=== PATIENT | female | born 1980 | race Caucasian/White ===

== ENCOUNTER 2017-01-22 19:42 | Inpatient (IN) | payer OTHER ==
[~2017-01-22] VITALS: Ht 152.4 cm; Wt 78.0 kg
[~2017-01-22 19:42] MED LIST: CALC600T11 PO; FERR-31 PO; PREN-29 PO; PREN1TAB33
[2017-01-22 20:21] VITALS: Ht 152.4 cm; Wt 78.0 kg
[2017-01-22] MEDS ORDERED: CARBOPROST 250 MCG INJ IM PRN (20:30)
[2017-01-22] MEDS ORDERED: MISOPROSTOL 200 MCG TAB PR PRN (20:30)
[2017-01-22] MEDS ORDERED: LACTATED RINGER'S 1,000 ML IV PRN (20:30)
[2017-01-22] MEDS ORDERED: METHYLERGONOVINE 0.2 MG INJ IM PRN (20:30)
[2017-01-22] MEDS ORDERED: ACETAMINOPHEN/CODEINE #3 TAB PO PRN (20:30)
[2017-01-22] MEDS ORDERED: BUTORPHANOL 2 MG INJ IV PRN (20:30)
[2017-01-22] MEDS ORDERED: LIDOCAINE 1% (MPF) 30 ML INJ INJ PRN (20:30)
[2017-01-22] MEDS ORDERED: OXYTOCIN 30 UNITS/LR 500 ML IV PRN (20:30)
[2017-01-22] MEDS ORDERED: OXYTOCIN 30 UNITS/LR 500 ML IV SCH ×2 (20:30)
[2017-01-22] MEDS ORDERED: IBUPROFEN 600 MG TAB PO PRN (20:30)
--- NOTE | 2017-01-22 20:50 | TRIAGE ---
OB Triage Datetime Report Generated by CPN: 01/22/2017 20:50 Datetime: 01/22/2017 20:17 Labor Evaluation Frequency: 2-5 Monitor Mode: External Duration (sec)2399: 60-80 Pattern: Normal: <= 5 Contractions in 10 Minutes Heart Rate FHR Baseline Rate: 140 Monitor Mode: External US FHR Baseline Changes: No Baseline Change Variability: Moderate 6-25 bpm Datetime: 01/22/2017 20:03 Stage of : OB Triage Assessment Type: Triage Maternal Assessment Level of Consciousness: Fully Conscious Headache: Denies Blurred Vision: No Respiratory Effort: Unlabored; Regular Rhythm; Equal Expansion Nausea/Vomiting: Denies RUQ Epigastric Pain: Denies Facial Edema: None Temperature Route: Axillary Fall Risk Assessment History of Falling: (0) No Secondary Diagnosis: (0) No Ambulatory Aid: (0) Bedrest/Nurse Assist IV Therapy: (0) No Gait: (0) Normal/Bedrest/Immobile Mental Status: (0) Oriented to Own Ability Fall Score: 0 Fall Risk Score Definition: No Risk: No action required Vaginal Exam Dilatation (cms): 5.0 Effacement (%): 80 Station: -2 Exam By: WES CHANCE Membrane Status: Bulging Cervix, Consistency: Soft Cervix, Position: Midposition Presentation 'A': Cephalic Datetime: 01/22/2017 20:00 Time of Arrival: 01/22/2017 19:35 EGA: 39.0 Arrived By: Ambulatory Arrived From: Home Chief Complaint: UC'S SINCE 09:00 Movement: Present Contractions: Irregular Time Contractions Began: 01/22/2017 09:00 Contractions: Q15-20 Rupture of Membranes: Denies Vaginal Bleeding: Scant Vaginal Discharge: Present Recent Sexual Intercouse: Denies Abdominal Trauma: Not Applicable Patient Complaints: Contractions Time Provider Notified: 01/22/2017 20:15 Provider Notified: SADIE Initial Plan: MATTHEW TEJADA, CALL OB
[2017-01-22 21:08] LABS: ADD SCAN DIFF NO
[2017-01-22 21:11] LABS: BASOPHILS % 0.2 % (0.0-2.0); EOSINOPHILS # 0.1 10^3/ul (0.0-0.5); EOSINOPHILS % 0.6 % (0.0-7.0); HEMATOCRIT 37.6 % (37.0-47.0); LYMPHOCYTES % 23.2 % (15.0-51.0); MEAN CORPUSCULAR HEMOGLOBIN 30.7 pg (29.0-33.0); MEAN CORPUSCULAR HGB CONC 34.6 g/dl (32.0-37.0); MEAN CORPUSCULAR VOLUME 88.9 fl (82.0-101.0); MEAN PLATELET VOLUME 10.4 fl (7.4-10.4); MONOCYTE # 0.6 10^3/ul (0.3-0.9); MONOCYTES % 7.2 % (0.0-11.0); NEUTROPHILS % 68.3 % (39.0-77.0); PLATELET COUNT 247 10^3/UL (140-415); RED BLOOD COUNT 4.23 10^6/ul (4.20-5.40); RED CELL DISTRIBUTION WIDTH 12.9 % (11.5-14.5); WHITE BLOOD COUNT 8.8 10^3/ul (4.8-10.8)
[2017-01-22] MEDS: LACTATED RINGER'S 1,000 ML IV SCH (21:55)
[2017-01-22 22:09] LABS: INR 0.93; PROTIME 12.5 Sec (12.2-14.2)
[2017-01-22 22:10] LABS: PARTIAL THROMBOPLASTIN TIME 25.9 Sec (25.0-35.0)
[2017-01-23] MEDS: LACTATED RINGER'S 1,000 ML IV SCH (02:07)
--- NOTE | 2017-01-23 07:44 | HP ---
Date/Time of Note Date/Time of Note DATE: 01/23/17 TIME: 07:40 OB - History Hx of Present Free Text/Dictation 36 Year-old with SIUP at 39 2/7 weeks presents with a chief complaint of ucs. She has been receiving her care with Dr. Solorzano. She states good movement. She denies nausea, vomiting, shortness of breath, chest pain, and abdominal pain between contractions, headache, visual changes, vaginal bleeding or LOF. : 2 Para: 1 Spontaneous : 0 Therapeutic : 0 Ultrasounds: Normal mid trimester US Obstetrical Complications: None Medical Complications: None Past Family/Social History * Past Medical, Surgical, Family and Obstetric Histories reviewed from chart. Blood Type: O+ Rubella: immune RPR/VDRL: Negative GBS Status: Negative HBsAG: Negative OB Admission Exam Physical Exam HEENT: WNL Heart: Rhythm Normal Lungs: Clear Extremities: Normal Cervical Dilatation: 5cm Effacement: 75% Station: -2 Membranes: Intact Heart Rate: 140's Accelerations: Accelerations Present Decelerations: No Decelerations Varibility: Moderate Contractions on Admission: < 5 Minutes Apart Intensity: Moderate Last 72 hours Lab Results CBC & BMP 01/22/17 20:30 OB Assessment/Plan Other plan: 36 Year-old with SIUP at 39 2/7 weeks in active labor. - FHR: No sign of metabolic acidosis- Category I - Continious EFM, toco - CBC, blood type and screen - Analgesia options with R/B/A discussed in detail with patient - Epidural per patient request - Please see the orders - O+/Rubella: Immune/GBS negative Admission, procedures, expectations, risks and possible complications have been discussed in detail with the patient. Risk of vaginal delivery including but not limited to bleeding, infection, cervical laceration, placental retention, injury to fetus, blood transfusion, blood transfusion related infection, risk of anesthesia, adhesion, cervical laceration, episiotomy/laceration, possible delivery with risk of bleeding, infection, injury to other organs ( bowel, bladder, ureter, vessels, nerves), injury to fetus, blood transfusion, blood transfusion related infection, risk of anesthesia, scar and hernia formation, needs for future , removal of uterus or any other indicated surgery discussed with the patient. She expressed understanding and repeats the risks. All of her questions were answered; all appropriate consents will be signed. PHYSICIAN'S VERIFICATION OF INFORMED CONSENT: The patient was counseled regarding the procedure, its indications, risks, potential complications and alternatives and any questions were answered. Consent was obtained. PLANNED PROCEDURE/TREATMENT: Vaginal delivery with possible vacuum/forceps delivery episiotomy, repair of laceration possible delivery PHYSICIAN'S VERIFICATION OF INFORMED CONSENT FOR BLOOD TRANSFUSION: There is a reasonable possibility that blood transfusion will be necessary as a result of the patient's procedure. I have discussed the following with the patient/patient's legal arborist representative: An explanation of the benefits and risks of the transfusion of blood or blood products and the possible alternatives. Al questions have been answered to the patient's/patients legal representatives satisfaction. INFORMED CONSENT: The patient has been informed of: - The nature of the proposed care, treatment, services, medic- Potential benefits, risks or side effects, including potential problems related to recuperation. - The likelihood of achieving care treatment and service goals. - Reasonable alternatives to the proposed care, treatment and service. - The relevant risks, benefits and side effects related to alternatives, including the possible results of not receiving care, treatment and services. - When indicated, any limitations on the confidentiality of information learned from or about the patient. - If appropriate, the risks, benefits and alternatives of the drugs to be used for sedation/analgesia including moderate sedation. ADELE NAM Jan 23, 2017 07:44
[2017-01-23] MEDS ORDERED: DEXTROSE 5%-LR 1,000 ML IV SCH (07:49)
[2017-01-23] MEDS ORDERED: LACTATED RINGER'S 1,000 ML IV* SCH (07:49)
--- NOTE | 2017-01-23 07:49 | LDN ---
Date/Time of Note Date/Time of Note DATE: 01/23/17 TIME: 07:44 Delivery Summary 36 Year-old with SIUP at 39 2/7 weeks delivered a male over first degree laceration Weight: 7 lbs 14 oz : 8 and 9 Time of delivery: 06:15 Placenta Delivered: Spontaneously Meconium: none Episiotomy: No Laceration repair: 3/0 vicryl Anesthesia type: Local Sponge & Needle done & correct: Yes All needle counts correct: Yes Any foreign bodies felt in the: No Problems: Infant Delivery Information Sex Infant Sex: male Apgars 1 Minute: 8 5 Minute: 9 Suctioning Nose & mouth suctioned at renny: Yes Umbilical Cord Umbilical cord with: 3 Vessels Cord presentations: no nuchal cord Cord Blood was obtained: Yes Mother & Baby Disposition Disposition Mom & Baby to Maternity; Good: Yes Mom transferred to: Med/Surg Baby to NICU: No ADELE NAM Jan 23, 2017 07:49
[2017-01-23] MEDS ORDERED: DIBUCAINE 1% 30 GM OINT TOP PRN (08:00)
[2017-01-23] MEDS ORDERED: DIPHENHYDRAMINE 50 MG INJ IV PRN (08:00)
[2017-01-23] MEDS ORDERED: OXYCODONE/ASPIRIN (4.88/325) TAB PO PRN (08:00)
[2017-01-23] MEDS ORDERED: ZOLPIDEM 5 MG TAB PO PRN (08:00)
[2017-01-23] MEDS ORDERED: CARBOPROST 250 MCG INJ IM PRN (08:00)
[2017-01-23] MEDS ORDERED: OXYTOCIN 30 UNITS/LR 500 ML IV PRN (08:00)
[2017-01-23] MEDS ORDERED: ONDANSETRON 4 MG INJ IV PRN (08:00)
[2017-01-23] MEDS ORDERED: MISOPROSTOL 200 MCG TAB PR PRN (08:00)
[2017-01-23] MEDS ORDERED: SENNA/DOCUSATE NA (8.6MG/50MG) TAB PO PRN (08:00)
[2017-01-23] MEDS ORDERED: BENZOCAINE 20% 56 ML SPRAY TOP PRN (08:00)
[2017-01-23] MEDS ORDERED: ACETAMINOPHEN 325 MG TAB PO PRN (08:00)
[2017-01-23] MEDS ORDERED: LANOLIN 7 GM TUBE TOP PRN (08:00)
[2017-01-23] MEDS ORDERED: METHYLERGONOVINE 0.2 MG INJ IM PRN (08:00)
[2017-01-23] MEDS ORDERED: WITCH HAZEL/GLYCERIN PAD PR PRN (08:00)
[2017-01-23] MEDS: IBUPROFEN 600 MG TAB PO SCH ×4 (08:13→23:35)
[2017-01-23 09:40] VITALS: BP 115/59; PULSE 85; RESP 20
[2017-01-23] MEDS: OXYTOCIN 30 UNITS/LR 500 ML IV SCH ×2 (11:21→15:30)
[2017-01-23 16:00] VITALS: BP 93/63; PULSE 83; RESP 18
[2017-01-23 20:00] VITALS: BP 101/72; PULSE 88; RESP 18
[2017-01-24 04:12] VITALS: BP 124/64; PULSE 74; RESP 20
[2017-01-24] MEDS: IBUPROFEN 600 MG TAB PO SCH ×3 (05:12→17:09)
[2017-01-24 08:00] VITALS: BP 98/56; RESP 20
[2017-01-24 08:05] LABS: ADD SCAN DIFF NO
[2017-01-24 08:10] LABS: BASOPHILS % 0.4 % (0.0-2.0); EOSINOPHILS % 0.2 % (0.0-7.0); HEMATOCRIT 32.1 % (37.0-47.0); HEMOGLOBIN 10.9 g/dl (12.0-16.0); LYMPHOCYTES # 2.5 10^3/ul (0.8-2.9); MEAN CORPUSCULAR HEMOGLOBIN 30.8 pg (29.0-33.0); MEAN CORPUSCULAR VOLUME 90.7 fl (82.0-101.0); MEAN PLATELET VOLUME 9.9 fl (7.4-10.4); MONOCYTE # 0.8 10^3/ul (0.3-0.9); MONOCYTES % 7.2 % (0.0-11.0); NEUTROPHIL # 7.4 10^3/ul (1.6-7.5); NEUTROPHILS % 68.5 % (39.0-77.0); PLATELET COUNT 217 10^3/UL (140-415); RED BLOOD COUNT 3.54 10^6/ul (4.20-5.40); WHITE BLOOD COUNT 10.9 10^3/ul (4.8-10.8)
[2017-01-24 16:00] VITALS: BP 113/64; RESP 19
[2017-01-24 20:30] VITALS: BP 104/58; PULSE 89; RESP 19
--- NOTE | 2017-01-24 20:58 | DS ---
Date/Time of Note Date/Time of Note DATE: 01/24/17 TIME: 20:57 Obstetrical Discharge Record Final Diagnosis Final Diagnosis: Term delivered Vaginal Delivery Obstetrical Delivery: Spontaneous, Laceration, Repaired Condition on Discharge Physical Assessment Voiding: Yes Bowel Movement: Yes Breast: Soft, non-tender Fundus: Firm Calf Tenderness: No Patient Condition: Stable KEVIN VICENTE MD Jan 24, 2017 20:58
[2017-01-25] MEDS: IBUPROFEN 600 MG TAB PO SCH ×3 (01:12→12:12)
[2017-01-25 04:00] VITALS: BP 118/64; PULSE 67; RESP 20
[2017-01-25 08:00] VITALS: BP 105/72; PULSE 78; RESP 18
[2017-01-25] MEDS ORDERED: MEASLES,MUMPS,RUBELLA VACCINE INJ SC* ONE (09:00)
[2017-01-25] MEDS ORDERED: DIPHTH/TET/ACEL PERTUSS (ADULT) 0.5 ML VIAL IM* ONE (09:00)
== END 2017-01-25 16:00 | disposition home or self-care (01) | DRG 775 ==
LOC: OBT 19:42 → L-D 19:43 → OBT 20:20 → L-D 21:45 → PP1 01-23 09:17
PROVIDERS: ADMIT Obstetrics & Gynecology; ATTEND Obstetrics & Gynecology
PROC: 10E0XZZ Delivery of Products of Conception, External Approach (ICD-10-PCS; principal; 2017-01-23)
PROC: 0HQ9XZZ Repair Perineum Skin, External Approach (ICD-10-PCS; 2017-01-23)
DX: O70.9 Perineal laceration during delivery, unspecified (principal); Z37.0 Single live birth; Z3A.39 39 weeks gestation of pregnancy
CPT/HCPCS: 85025; 85610; 85730; 86592; 86900; 86901; 87340; 90715; G0463; J2590; J7120; J7121

== ENCOUNTER 2017-07-10 07:06 | Day surgery (SDC) | payer OTHER ==
[~2017-07-10] VITALS: Ht 165.1 cm; Wt 63.0 kg
[~2017-07-10 07:06] MED LIST changes: -CALC600T11 PO; +CALC600T24 PO
[2017-07-10 08:18] VITALS: BP 121/73; PULSE 68; RESP 18; Ht 165.1 cm; Wt 63.0 kg
[2017-07-10 08:31] LABS: BASOPHILS % 0.7 % (0.0-2.0); EOSINOPHILS # 0.1 10^3/ul (0.0-0.5); EOSINOPHILS % 1.2 % (0.0-7.0); HEMATOCRIT 40.5 % (37.0-47.0); HEMOGLOBIN 13.6 g/dl (12.0-16.0); LYMPHOCYTES % 34.9 % (15.0-51.0); MEAN CORPUSCULAR HEMOGLOBIN 28.7 pg (29.0-33.0); MEAN CORPUSCULAR HGB CONC 33.6 g/dl (32.0-37.0); MEAN CORPUSCULAR VOLUME 85.4 fl (82.0-101.0); MEAN PLATELET VOLUME 9.8 fl (7.4-10.4); MONOCYTE # 0.5 10^3/ul (0.3-0.9); MONOCYTES % 8.2 % (0.0-11.0); NEUTROPHIL # 3.1 10^3/ul (1.6-7.5); NEUTROPHILS % 54.8 % (39.0-77.0); PLATELET COUNT 263 10^3/UL (140-415); RED BLOOD COUNT 4.74 10^6/ul (4.20-5.40); RED CELL DISTRIBUTION WIDTH 12.4 % (11.5-14.5); WHITE BLOOD COUNT 5.7 10^3/ul (4.8-10.8)
[2017-07-10] MEDS ORDERED: PROPOFOL 0 ML ONE (10:46)
[2017-07-10] MEDS ORDERED: FENTAnyl 50 MCG/ML VIAL ONE (10:46)
[2017-07-10] MEDS ORDERED: MIDAZOLAM 1 MG/ML 2 ML INJ ONE (10:46)
[2017-07-10] MEDS ORDERED: ROPIVACAINE 0.2% 20 ML VIAL ONE (10:46)
[2017-07-10] MEDS ORDERED: ROCURONIUM 50 MG INJ ONE (10:46)
[2017-07-10] MEDS ORDERED: CEFAZOLIN 1 GM INJ ONE (10:46)
== END 2017-07-10 11:09 | disposition home or self-care (01) ==
LOC: SDS 07:06
PROVIDERS: ATTEND Obstetrics & Gynecology
DX: Z30.2 Encounter for sterilization (principal); Z53.8 Procedure and treatment not carried out for other reasons
CPT/HCPCS: 84703; 85025; 86850; 86900; 86901; J2795; J0690; J2250; J3010

== ENCOUNTER 2018-01-22 09:25 | Day surgery (SDC) | END 2018-01-22 15:00 | disposition home or self-care (01) ==